=== PATIENT | female | born 1975 | race Caucasian/White ===

== ENCOUNTER → 2021-10-09 18:48 | Outpatient (BNVA) | payer BC, SELFPAY | PROVIDERS: PCP Nurse Practitioner Family; Visit Provider Registered Nurse Neonatal Intensive Care | DX: R50.9 Fever, unspecified (principal) | CPT/HCPCS: 87400 ==

== ENCOUNTER 2021-12-22 20:49 | Emergency (ER) | payer BC, MEDICAID, SELFPAY ==
[2021-12-22 20:51] VITALS: BP 112/83; PULSE 101; RESP 20; O2SAT 97; BMI 25.0
--- NOTE | 2021-12-22 20:56 | CTR_ITS ---
PROCEDURE INFORMATION: Exam: CT Chest With Contrast; Diagnostic Exam date and time: 12/22/2021 9:23 PM Age: 45 years old Clinical indication: Injury or trauma; Fall; Generalized; Blunt trauma (contusions or hematomas); Additional info: Fall 15 ft TECHNIQUE: Imaging protocol: Diagnostic computed tomography of the chest with contrast. Radiation optimization: All CT scans at this facility use at least one of these dose optimization techniques: automated exposure control; mA and/or kV adjustment per patient size (includes targeted exams where dose is matched to clinical indication); or iterative reconstruction. Contrast material: OMNI 350; Contrast volume: 83 ml; Contrast route: INTRAVENOUS (IV); COMPARISON: CT cervical spin wo con* [id number] 12/22/2021 9:20 PM RADIATION DOSE METRICS: Total DLP (mGy-cm): 1766.64 FINDINGS: Lungs: Unremarkable. No consolidation. No masses. Pleural spaces: Unremarkable. No pneumothorax. No pleural effusion. Heart: Unremarkable. No cardiomegaly. No pericardial effusion. Lymph nodes: Prominent mediastinal and hilar lymph nodes are most likely reactive. Calcified left hilar lymph nodes. Vasculature: Unremarkable. No aortic aneurysm. Bones/joints: Unremarkable. No acute fracture. Soft tissues: Unremarkable. PROCEDURE INFORMATION: Exam: CT Abdomen And Pelvis With Contrast Exam date and time: 12/22/2021 9:23 PM Age: 45 years old Clinical indication: Injury or trauma; Fall; Generalized; Blunt trauma (contusions or hematomas); Additional info: Fall 15 ft TECHNIQUE: Imaging protocol: Computed tomography of the abdomen and pelvis with contrast. Radiation optimization: All CT scans at this facility use at least one of these dose optimization techniques: automated exposure control; mA and/or kV adjustment per patient size (includes targeted exams where dose is matched to clinical indication); or iterative reconstruction. Contrast material: OMNI 350; Contrast volume: 83 ml; Contrast route: INTRAVENOUS (IV); COMPARISON: US ROR venous duplex LE RT 12/23/2019 10:38 AM RADIATION DOSE METRICS: Total DLP (mGy-cm): 1766.64 FINDINGS: Liver: Normal. No mass. Gallbladder and bile ducts: Normal. No calcified stones. No ductal dilation. Pancreas: Normal. No ductal dilation. Spleen: Calcified granulomas in the spleen. Adrenal glands: Normal. No mass. Kidneys and ureters: Mildly dysplastic right kidney. The left kidney is normal. No hydronephrosis. Stomach and bowel: Unremarkable. No obstruction. No mucosal thickening. Appendix: The appendix is visualized and is normal. Intraperitoneal space: Unremarkable. No free air. No significant fluid collection. Vasculature: Unremarkable. No abdominal aortic aneurysm. Lymph nodes: Unremarkable. No enlarged lymph nodes. Urinary bladder: Unremarkable as visualized. Reproductive: Mild physiologic enhancement in the right ovary. The uterus and left ovary are unremarkable. Bones/joints: Unremarkable. No acute fracture. Soft tissues: Subcutaneous fat contusion in the left hip region. CT/CT chest abd pel w con* IMPRESSION: 1. No fracture or acute finding. IMPRESSION: 1. No fracture or solid organ trauma identified. 2. Soft tissue contusion in the left hip region.
--- NOTE | 2021-12-22 20:56 | XRR_ITS ---
PROCEDURE INFORMATION: Exam: XR Left Forearm Exam date and time: 12/22/2021 9:36 PM Age: 45 years old Clinical indication: Injury or trauma; Fall; Blunt trauma (contusions or hematomas); Arm, lower; Left; Additional info: Fall arm pain TECHNIQUE: Imaging protocol: Radiologic exam of the Left forearm. Views: 2 views. COMPARISON: No relevant prior studies available. FINDINGS: Bones/joints: Normal. Soft tissues: Normal. XR/XR forearm LT 2V [id number] IMPRESSION: No acute findings.
--- NOTE | 2021-12-22 20:56 | XRR_ITS ---
PROCEDURE INFORMATION: Exam: XR Left Knee Exam date and time: 12/22/2021 9:32 PM Age: 45 years old Clinical indication: Injury or trauma; Fall; Blunt trauma; Knee; Left; Additional info: Fall knee pain TECHNIQUE: Imaging protocol: Radiologic exam of the Left knee. Views: 3 views. COMPARISON: No relevant prior studies available. FINDINGS: Bones/joints: The bones are intact and in normal alignment. The lateral view is malpositioned. Soft tissues: Normal. XR/XR knee LT 3V* [id number] IMPRESSION: No acute finding.
--- NOTE | 2021-12-22 20:56 | XRR_ITS ---
PROCEDURE INFORMATION: Exam: XR Left Hand Exam date and time: 12/22/2021 9:41 PM Age: 45 years old Clinical indication: Injury or trauma; Fall; Blunt trauma (contusions or hematomas); Hand; Left; Additional info: Fall finger FX TECHNIQUE: Imaging protocol: Radiologic exam of the Left hand. Views: 3 or more views. COMPARISON: CR (UP EXM, ) 12/22/2021 9:36 PM FINDINGS: Bones/joints: Posterior dislocation of the 4th proximal interphalangeal joint. No definite fracture visualized. The lateral view is suboptimal due to overlapping of all 4 fingers. The AP views are oblique. Soft tissues: Normal. XR/XR hand LT min 3V* [id number] IMPRESSION: Posterior dislocation of the 4th proximal interphalangeal joint.
--- NOTE | 2021-12-22 20:56 | CTR_ITS ---
PROCEDURE INFORMATION: Exam: CT Head Without Contrast Exam date and time: 12/22/2021 9:17 PM Age: 45 years old Clinical indication: Injury or trauma; Fall; Blunt trauma (contusions or hematomas); Additional info: Fall inury TECHNIQUE: Imaging protocol: Computed tomography of the head without contrast. Radiation optimization: All CT scans at this facility use at least one of these dose optimization techniques: automated exposure control; mA and/or kV adjustment per patient size (includes targeted exams where dose is matched to clinical indication); or iterative reconstruction. COMPARISON: No relevant prior studies available. RADIATION DOSE METRICS: Total DLP (mGy-cm): 807.63 FINDINGS: Limitations: Streak artifacts on the lower slices. Brain: No hemorrhage. Unremarkable white matter. No mass effect. Cerebral ventricles: No ventriculomegaly. Paranasal sinuses: Slight mucosal thickening in several sinuses. No air-fluid levels. Mastoid air cells: Unremarkable mastoids. Bones/joints: Left TMJ degeneration. No skull fracture. Soft tissues: No acute soft tissue finding. CT/CT head wo con* [id number] IMPRESSION: No acute findings.
--- NOTE | 2021-12-22 20:59 | CTR_ITS ---
PROCEDURE INFORMATION: Exam: CT Cervical Spine Without Contrast Exam date and time: 12/22/2021 9:20 PM Age: 45 years old Clinical indication: Injury or trauma; Fall; Blunt trauma; Additional info: Fall 15 ft TECHNIQUE: Imaging protocol: Computed tomography of the cervical spine without contrast. Radiation optimization: All CT scans at this facility use at least one of these dose optimization techniques: automated exposure control; mA and/or kV adjustment per patient size (includes targeted exams where dose is matched to clinical indication); or iterative reconstruction. COMPARISON: e+1 CT head wo con* [id number] 12/22/2021 9:17 PM RADIATION DOSE METRICS: Total DLP (mGy-cm): 614.92 FINDINGS: Bones/joints: No acute fracture or malalignment. Left TMJ degeneration. Discs/Spinal canal/Neural foramina: Minimal narrowing of the C6-C7 disc with slight annular bulging at this level and C3-C4. No significant canal or foraminal stenosis. Lungs: Two small ring densities in each upper lung, the largest located in the left upper lung measuring about 7 mm in diameter and having relatively thin but slightly irregular hopkins. Soft tissues: No acute finding. CT/CT cervical spin wo con* [id number] IMPRESSION: 1. No acute fracture. Minimal cervical degenerative disease detailed above. Left TMJ degeneration also present. 2. Subcentimeter ring densities in each upper lung raising the possibility of cavities.
--- NOTE | 2021-12-22 20:59 | ECG_ITS ---
[facility] Test Date: 2021-12-22 Pat Name: Janeth Limon Department: Room: Gender: Female Train Driver: : 1975 Requested By: Pankaj Leo Order Number: [id number] Elaine MD: Andreia Schultz M.D. Measurements Intervals [place] Rate: 99 P: 70 NV: 194 QRS: 99 QRSD: 121 T: 86 QT: 383 QTc: 491 Interpretive Statements SINUS RHYTHM LEFT ATRIAL ENLARGEMENT [-0.15mV P-WAVE IN V1/V2] BORDERLINE RIGHT AXIS DEVIATION [QRS AXIS > 90] ANTEROSEPTAL MYOCARDIAL INFARCTION , POSSIBLY ACUTE [40+ ms Q WAVE IN V1-V4] ACUTE CO No previous ECG available for comparison Electronically Signed On 12-24-2021 21:26:56 CDT by Andreia Schultz M.D. [email or web address]
--- NOTE | 2021-12-22 21:11 | ED_ITS ---
HPI - Fall General: Chief Complaint: Fall Stated Complaint: fall Time Seen by Provider: 12/22/21 20:56 Source: patient History of Present Illness: 45-year-old female who evidently sometime around 6 PM or before, fell between 15 and 20 feet off an embankment/[place]. She had a prolonged extrication time. She states that she never lost consciousness. She remembers the event. She denies head injury. She states mainly she has pain to the left hand and left forearm as well as her left knee. She has hip pain bilaterally as well. She has multiple abrasions. She presents awake, alert, and talking. She also states that a couple of teeth were knocked out. MD complaint: fall Onset (ago): hour(s) Fall from: from height (distance) Fall witnessed: yes, by bystander Place fall occurred: other Loss of consciousness: None Prolonged down time: yes Symptoms prior to fall: none Context: tripped/slipped Location of injury: face Location of injury - extremities: Left: forearm and knee Severity: moderate Associated symptoms-after fall: Denies abdominal pain, chest pain, confusion, headache(s), neck pain, short of breath or weakness Review of Systems Const: Denies: fever(s) Eyes: Denies: change in vision ENMT: Denies: throat pain Card: Denies: chest pain Resp: Denies: dyspnea GI: Reports: nausea; Denies: abdominal pain or vomiting : Denies: flank pain Musc: Reports: extremity pain; Denies: neck pain or back pain Skin/Breast: Reports: rash Neuro: Denies: headache(s) or confusion Physical Exam Const: GENERAL APPEARANCE: cooperative, in distress (Mild from pain) and ill appearing; not lethargic ORIENTATION/CONSCIOUSNESS: not lethargic HENMT: COMMON NORMALS: normocephalic and Normal external nose present HEAD & SCALP: normocephalic FACE & SINUS: normal facial exam and face symmetric; no abrasion and no edema NOSE: Normal external nose present and Normal nares present TEETH & GINGIVA: Yes abnormal tooth and associated gingiva (Appears right and left premolars are missing) THROAT: posterior oropharynx normal Eye: COMMON NORMALS: Equal, round and reactive pupils present and EOMs intact bilaterally PUPIL: Yes Equal, round and reactive pupils present Neck/C-Spine: GENERAL: Yes trachea midline CERVICAL SPINE: No Cervical spine tenderness Chest: COMMONS NORMALS: normal inspection of the chest Resp: COMMON NORMALS: normal respiratory effort, No use of accessory muscles and clear to auscultation bilaterally AUSCULTATION: clear to auscultation bilaterally Cardio: COMMON NORMALS: regular rhythm RATE: tachycardic RHYTHM: regular rhythm GI: COMMON NORMALS: Soft to palpation INSPECTION: No abdominal wall ecchymosis and No abdominal distension PALPATION: Yes Soft to palpation and No Tenderness to palpation present (GI) Back/Pelvis: COMMON NORMALS: thoracic and lumbar spine normal to inspection and no thoracic nor lumbar tenderness Extremity: NARRATIVE EXTREMITY EXAM: Left ring finger open deformity at the PIP. Tenderness along the left forearm. Puncture wound to the left anterior knee. Bleeding controlled. There is swelling to the knee as well. Neuro: SENSORIUM/ORIENTATION: No lethargic Procedures Laceration Laceration 1: Site: hand Side (If applicable): left Size (cm): 1.5 Description: irregular Depth: simple, single layer Local Anesthetic: lidocaine 1% Amount of anesthesia used (mL): 6 Pre-repair: wound explored, irrigated extensively and deep structures intact Skin layer closed with: nylon Size (cm): 4-0 Number of sutures: 3 Technique: simple, interrupted Laceration 2: Site: lower extremity Side (If applicable): left Size (cm): 1 Description: irregular Depth: simple, single layer Local Anesthetic: lidocaine 1% Amount of anesthesia used (mL): 2 Pre-repair: wound explored, irrigated extensively and deep structures intact Skin layer closed with: nylon Size (cm): 4-0 Number of sutures: 1 Technique: simple, interrupted Orthopedic Joint Reduction Joint #1: Time Out Performed: No Side: left Joint Reduction Location: finger Analgesia: nerve block Local Anesthesia: lidocaine 1% Amount of anesthesic used (mL): 6 Technique used: traction/counter-traction Post-reduction neuro exam: intact Post-reduction vascular: intact Post Reduction X-Ray Obtained: Yes Post Reduction X-Ray Results: reduced Splint Applied: Yes Patient Tolerated Procedure: well and no complications Course Vital Signs: Vital signs: Vital Signs Temperature 98.2 F 12/23/21 02:31 Pulse Rate 92 12/23/21 02:31 Respiratory Rate 18 12/23/21 02:31 Blood Pressure 121/81 12/23/21 02:31 Pulse Oximetry 98 12/23/21 02:31 MDM - Fall Medical Decision Making White blood cell count is 18.7. Labs are otherwise benign. Her vitals have been completely stable. CTs of the head, cervical spine, chest abdomen pelvis including thoracic and lumbar spine revealed no acute injury. X-ray of the hand reveals an open dislocation of the left fourth PIP. X-ray of the forearm is negative. After digital block, PIP dislocation is reduced followed by suturing of the open wound. Tendon is observed, and appears intact. It is splinted in alignment. Puncture wound over the knee is sutured as well. Knee x-ray reveals no free air in the joint. Puncture wound does not appear intra-articular. It was irrigated copiously with saline prior to closure. She will be placed on antibiotics for the open dislocation of her finger. Orthopedic follow-up. Lab Data : 12/22/21 21:00 12/22/21 21:00 Radiology Impressions Chest/Abdomen/Pelvis CT 12/22/21 20:56 IMPRESSION: 1. No fracture or acute finding. IMPRESSION: 1. No fracture or solid organ trauma identified. 2. Soft tissue contusion in the left hip region. Forearm X-Ray 12/22/21 20:56 IMPRESSION: No acute findings. Hand X-Ray 12/22/21 20:56 IMPRESSION: Posterior dislocation of the 4th proximal interphalangeal joint. Head CT 12/22/21 20:56 IMPRESSION: No acute findings. Knee X-Ray 12/22/21 20:56 IMPRESSION: No acute finding. Cervical Spine CT 12/22/21 20:59 IMPRESSION: 1. No acute fracture. Minimal cervical degenerative disease detailed above. Left TMJ degeneration also present. 2. Subcentimeter ring densities in each upper lung raising the possibility of cavities. Finger X-Ray 12/23/21 00:08 IMPRESSION: Residual radial and dorsal subluxation of the ring finger middle phalanx with respect to the head of the proximal phalanx with indeterminate alignment on the lateral view secondary to overlying artifact from other fingers. Laboratory Results WBC 18.7 10^3/uL (4.0-10.0) H 12/22/21 21:00 RBC 5.32 10^6/uL (4.1-5.3) H 12/22/21 21:00 Hgb 12.7 g/dL (11.5-15.3) 12/22/21 21:00 Hct 41.3 % (37.0-47.0) 12/22/21 21:00 MCV 77.6 fl (81-99) L 12/22/21 21:00 MCH 23.9 pg (28.0-34.0) L 12/22/21 21:00 MCHC 30.8 g/dL (30.0-36.0) 12/22/21 21:00 RDW 17.8 % (12.1-15.1) H 12/22/21 21:00 Plt Count 486 10^3/cmm (130-400) H 12/22/21 21:00 MPV 9.3 fL (7.4-10.4) 12/22/21 21:00 Neut % (Auto) 77.6 % 12/22/21 21:00 Lymph % (Auto) 15.7 % 12/22/21 21:00 Hughes % (Auto) 5.4 % 12/22/21 21:00 Eos % (Auto) 0.1 % 12/22/21 21:00 Baso % (Auto) 0.3 % 12/22/21 21:00 Neut # (Auto) 14.53 10^3/uL (1.8-7.7) H 12/22/21 21:00 Lymph # (Auto) 2.9 10^3/uL (0.8-4.8) 12/22/21 21:00 Hughes # (Auto) 1.0 10^3/uL (0.2-0.9) H 12/22/21 21:00 Eos # (Auto) 0.0 10^3/uL (0.0-0.8) 12/22/21 21:00 Baso # (Auto) 0.1 10^3/uL (0.0-0.1) 12/22/21 21:00 Nucleated RBC % (auto) 0 % 12/22/21 21:00 Nucleated RBCs # 0.0 /100WBC 12/22/21 21:00 Sodium 140 mmol/L (136-145) 12/22/21 21:00 Potassium 3.9 mmol/L (3.5-5.1) 06/18/22 21:00 Chloride 103 mmol/L (98-107) 12/22/21 21:00 Carbon Dioxide 23 mmol/L (22-29) 12/22/21 21:00 Anion Gap 17.9 (5-19) 12/22/21 21:00 BUN 10 mg/dL (6-20) 12/22/21 21:00 Creatinine 1.1 mg/dL (0.5-0.9) H 12/22/21 21:00 GFR Calculation 54.2 mL/min (90-130) L 12/22/21 21:00 Glucose 101 mg/dL (65-115) 12/22/21 21:00 Calculated Osmolality 289 mOsm/kg (285-295) 12/22/21 21:00 Calcium 9.0 mg/dL (8.5-10.5) 12/22/21 21:00 Total Bilirubin 0.2 mg/dL (0.15-1.2) 12/22/21 21:00 AST 19 U/L (0-32) 12/22/21 21:00 ALT 11 U/L (0-33) 12/22/21 21:00 Alkaline Phosphatase 125 IU/L (35-105) H 12/22/21 21:00 Creatine Kinase 89 U/L (26-192) 12/22/21 21:00 Total Protein 7.9 g/dL (6.6-8.7) 12/22/21 21:00 Albumin 4.6 g/dL (3.5-5.2) 12/22/21 21:00 Globulin 3.3 g/dL (1.3-4.6) 12/22/21 21:00 Ethyl Alcohol 116 mg/dL (0-10) H 12/22/21 21:00 Discharge Plan Discharge Patient Disposition: Home Clinical Impression: Dislocation of finger PIP joint, Laceration of knee, left, Contusion of hip, left, Contusion of hip, right Laceration of finger Qualifiers: Encounter type: initial encounter Finger: ring finger Damage to nail status: without damage Foreign body presence: without foreign body Laterality: left Qualified Code(s): S61.215A - Laceration without foreign body of left ring finger without damage to nail, initial encounter Condition: Stable Prescriptions: New doxycycline hyclate 100 mg capsule 100 mg PO BID 7 Days Qty: 14 0RF Percocet 7.5-325 mg tablet 1 tab PO Q6H PRN (Reason: pain) Qty: 10 0RF Discharge Orders: Discharge ED (Routine); Ordered 12/23/21 Ordered By: Pankaj Montaño Referrals: Jenny Melchor FNP [Primary Care Provider] - 4-7 days Maday Tinsley MD [Physician] - 4-7 days Patient Instructions: Contusion in Adults (ED), Finger Laceration (ED), Finger Dislocation (ED), Opioid Safety Activity Restrictions/Additional Instructions: Sutures out in 7 to 10 days. Keep clean and dry for 24 hours, then may wash with soap and running water. Do not submerge. Antibiotics as directed. Pain medication for severe pain. You may use ibuprofen as well. Case management order has been placed for orthopedics referral regarding your finger. Stay in splint until seen by them. Return for any concerning symptoms. Coding Level of Care Code ED Hydraulic Strainer Operator for Aiyana Fwannie Exam Comprehensive
[2021-12-22 21:17] LABS: Basophils # 0.1 10^3/uL (0.0-0.1); Basophils % 0.3 %; Eosinophils % 0.1 %; Hematocrit 41.3 % (37.0-47.0); Hemoglobin 12.7 g/dL (11.5-15.3); Lymphocytes # 2.9 10^3/uL (0.8-4.8); Lymphocytes % 15.7 %; Mean Corpuscular HGB Conc 30.8 g/dL (30.0-36.0); Mean Corpuscular Hemoglobin 23.9 pg (28.0-34.0); Mean Corpuscular Volume 77.6 fl (81-99); Mean Platelet Volume 9.3 fL (7.4-10.4); Monocytes % 5.4 %; Neutrophils # 14.53 10^3/uL (1.8-7.7); Neutrophils % 77.6 %; Nucleated Red Blood Cells % 0 %; Platelet Count 486 10^3/cmm (130-400); Red Blood Count 5.32 10^6/uL (4.1-5.3); Red Cell Distribution Width 17.8 % (12.1-15.1); White Blood Count 18.7 10^3/uL (4.0-10.0)
[2021-12-22 21:38] LABS: Alanine Aminotransferase 11 U/L (0-33); Albumin Level 4.6 g/dL (3.5-5.2); Alcohol Level 116 mg/dL (0-10); Alkaline Phosphatase 125 IU/L (35-105); Anion Gap 17.9 (5-19); Aspartate Amino Transferase 19 U/L (0-32); Blood Urea Nitrogen 10 mg/dL (6-20); Carbon Dioxide 23 mmol/L (22-29); Chloride 103 mmol/L (98-107); Creatine Phosphokinase 89 U/L (26-192); Globulin 3.3 g/dL (1.3-4.6); Glomerular Filtration Rate 54.2 mL/min (90-130); Glucose 101 mg/dL (65-115); Osmolality Calculated 289 mOsm/kg (285-295); Potassium 3.9 mmol/L (3.5-5.1); Sodium 140 mmol/L (136-145); Total Bilirubin 0.2 mg/dL (0.15-1.2); Total Protein 7.9 g/dL (6.6-8.7)
[2021-12-22] MEDS: iohexol 350 mg/mL 100 mL Btl IV (21:42)
[2021-12-22] MEDS: morphine 4 mg/mL SDV 1 mL IVP (21:52)
[2021-12-22] MEDS: ondansetron 2 mg/ML SDV 2 mL 4 MG IVP (21:52)
[2021-12-22] MEDS: sodium chloride 0.9% 1,000 ML 999 ML IV (21:52)
--- NOTE | 2021-12-23 00:08 | XRR_ITS ---
PROCEDURE INFORMATION: Exam: XR Left Finger(s) Exam date and time: 12/23/2021 12:26 AM Age: 45 years old Clinical indication: Abnormal findings; Abnormal imaging study of the limbs; Hand; Additional info: Dislocation, reduction TECHNIQUE: Imaging protocol: Radiologic exam of the Left fingers. Views: Minimum 2 views. COMPARISON: CR ([facility], ) 12/22/2021 9:41 PM FINDINGS: Bones/joints: Residual radial and dorsal subluxation of the ring finger middle phalanx with respect to the head of the proximal phalanx with indeterminate alignment on the lateral view secondary to overlying artifact from other fingers. Soft tissues: Normal. XR/XR finger LT min 2V [id number] IMPRESSION: Residual radial and dorsal subluxation of the ring finger middle phalanx with respect to the head of the proximal phalanx with indeterminate alignment on the lateral view secondary to overlying artifact from other fingers.
[2021-12-23 00:45] VITALS: RESP 18
[2021-12-23] MEDS: fentaNYL 50 mcg/mL INJ 2mL 75 MCG IVP (00:45)
[2021-12-23] MEDS: ceFAZolin 1,000 MG in sodium chloride 0.9% (plus) 50 ML 100 MG IV (00:45)
[2021-12-23 02:31] VITALS: BP 121/81; PULSE 92; RESP 18; TEMP 36.8; O2SAT 98
--- NOTE | 2021-12-23 07:02 | DCPLANNER ---
Addendum entered by Theresa Guillory 01/27/22 15:11: Patient had a follow up appointment scheduled for 12.27.21 with Valentín Velez at ortho - patient did attend appointment. Original Note: manager architecture had message to schedule a follow up appointment for patient with ortho. manager architecture sent patients information to the front office staff at ortho. Patients information will be printed and reviewed. Clinic will call patient with appointment information.
== END 2021-12-23 02:37 | disposition home or self-care (01) ==
PROVIDERS: Emergency Provider Emergency Medicine; PCP Nurse Practitioner Family
DX: S63.281A Dislocation of proximal interphalangeal joint of left index finger, initial encounter (principal); S81.012A Laceration without foreign body, left knee, initial encounter; S70.02XA Contusion of left hip, initial encounter; S70.01XA Contusion of right hip, initial encounter; W17.81XA Fall down embankment (hill), initial encounter
CPT/HCPCS: 12001; 26770; 70450; 71260; 72125; 73090; 73130; 73140; 73562; 74177; 80053; 80307; 82550; 85025; 93005; 96365; 96375; 99285; J0690; J2270; J2405; J3010; J7030; Q9967

== ENCOUNTER → 2021-12-27 14:55 | Outpatient (BNVA) | payer BC, MEDICAID, SELFPAY | PROVIDERS: PCP Nurse Practitioner Family; Referring Provider Emergency Medicine; Visit Provider Nurse Practitioner Family | DX: S61.215A Laceration without foreign body of left ring finger without damage to nail, initial encounter (principal); S63.289A Dislocation of proximal interphalangeal joint of unspecified finger, initial encounter; W17.89XA Other fall from one level to another, initial encounter | CPT/HCPCS: 99214 ==

== ENCOUNTER 2021-12-29 18:00 | Emergency (ER) | payer BC, MEDICAID, SELFPAY ==
[2021-12-29 18:53] VITALS: BP 127/84; PULSE 79; RESP 16; TEMP 36.5; O2SAT 95; BMI 25.0
--- NOTE | 2021-12-29 18:54 | XRR_ITS ---
PROCEDURE INFORMATION: Exam: XR Left Hand Exam date and time: 12/29/2021 9:18 PM Age: 46 years old Clinical indication: Pain; Hand; Left; Additional info: Hand pain TECHNIQUE: Imaging protocol: Radiologic exam of the Left hand. Views: 3 or more views. COMPARISON: CR (UP EX, ) 12/22/2021 9:41 PM FINDINGS: Bones/joints: Dislocation of the 4th digit at the PIP joint space. No evidence of fracture. Soft tissues: Normal. XR/XR hand LT min 3V* [id number] IMPRESSION: Dislocation at the 4th PIP joint space.
--- NOTE | 2021-12-29 21:40 | W.ED.EXTPRO ---
Documented by User: NICOLA Shah 12/30/21 17:08 HPI - Extremity Problem General: Chief complaint: Extremity Injury, Upper Stated complaint: Left finger pain Time Seen by Provider: 12/29/21 21:04 History of Present Illness: Patient is a 46-year-old female comes to the ED with left ring finger dislocation. Patient was seen here in the ED back on December 22 after having a fall and she had a dislocated left ring finger that was reduced before she was discharged. She is scheduled to see a hand specialist in [place], but the finger dislocated again without any injury or trauma. The finger read dislocated and has been out for approximately 4 to 5 days. Hand Specialist told her to come here to the ED to have finger reduced before she goes to her appointment this coming week. Associated symptoms: Deny chest pain, fever(s) or rash Review of Systems Const: Denies: fever(s), chills or fatigue Eyes: Denies: change in vision or eye discomfort ENMT: Denies: throat pain, odynophagia, nasal discharge or nasal congestion Card: Denies: chest pain, palpitations, edema, swelling of feet/ankles, dyspnea on exertion or orthopnea Resp: Denies: dyspnea, productive cough or non-productive cough GI: Denies: abdominal pain, nausea, vomiting, diarrhea, constipation or hematochezia : Denies: flank pain, dysuria or hematuria Musc: Reports: extremity pain (Left hand fourth digit PIP joint ), extremity swelling (Left hand fourth digit) and deformity (Visible deformity/dislocation of PIP joint on left hand fourth digit.); Denies: neck pain or back pain Skin/Breast: Denies: rash or new lesions Neuro: Denies: headache(s), numbness in extremities or weakness in extremities [facility] ED PFSH: Medical History (Updated 12/30/21 @ 17:08 by NICOLA Shah) No pertinent family history Surgical History (Updated 12/30/21 @ 17:08 by NICOLA Shah) No pertinent past surgical history Physical Exam Const: COMMON NORMALS: no acute distress, patient oriented x3 and alert GENERAL APPEARANCE: cooperative HENMT: COMMON NORMALS: normocephalic HEAD & SCALP: normocephalic MOUTH: Normal oral and palatal mucosa present THROAT: posterior oropharynx normal and uvula midline Neck/C-Spine: COMMON NORMALS: supple GENERAL: Yes normal visual inspection Resp: COMMON NORMALS: normal respiratory effort, No retractions, No use of accessory muscles and clear to auscultation bilaterally AUSCULTATION: clear to auscultation bilaterally Cardio: COMMON NORMALS: regular rate, regular rhythm, S1 normal heart sound present, S2 normal heart sound present, No gallops present (Cardio), No clicks present (Cardio), No murmurs present (Cardio) and Peripheral pulses 2+ throughout RATE: regular rate RHYTHM: regular rhythm HEART SOUNDS: S1 normal heart sound present and S2 normal heart sound present PERIPHERAL PULSES: Peripheral pulses 2+ throughout GI: COMMON NORMALS: Normal to inspection, nondistended, normoactive bowel sounds present, Soft to palpation, non-tender and no masses PALPATION: Yes Soft to palpation : COMMON NORMALS: Yes no CVA tenderness BLADDER/KIDNEY EXAM: Yes no CVA tenderness Back/Pelvis: COMMON NORMALS: no CVA tenderness Extremity: COMMON NORMALS: normal to inspection NARRATIVE EXTREMITY EXAM: Patient has visible dislocation of PIP joint of left hand fourth digit. Tenderness of finger and swelling noted as well. Neuro: COMMON NORMALS: patient oriented x3 and moves all extremities SENSORIUM/ORIENTATION: Yes alert Skin: GENERAL SKIN EXAM: dry skin Procedures Nerve Block Nerve Block 1: Time out performed: Yes Local Anesthetic: lidocaine 2% Amount of anesthesia used (mL): 5 Side: left Nerve Blocks: digital (Fourth digit) Procedure Successful: Yes Patient Tolerated Procedure: well Complications: none Orthopedic Joint Reduction Joint #1: Time Out Performed: Yes Side: left Joint Reduction Location: finger (PIP joint fourth digit) Analgesia: nerve block (Digital nerve block) Amount of anesthesic used (mL): 5 Technique used: traction/counter-traction Post-reduction neuro exam: intact Post-reduction vascular: intact Post Reduction X-Ray Obtained: Yes Course Vital Signs: Vital signs: Vital Signs Temperature 98.2 F 12/30/21 02:15 Pulse Rate 80 12/30/21 02:15 Respiratory Rate 18 12/30/21 02:40 Blood Pressure 124/86 12/30/21 02:15 Pulse Oximetry 95 12/29/21 18:53 MDM - Extremity (Nontraumatic) Lab Data Radiology Impressions Hand X-Ray 12/29/21 23:01 IMPRESSION: Post reduction views as discussed above. Finger X-Ray 12/30/21 02:28 IMPRESSION: Post reduction views as above. Discharge Plan Discharge Patient Disposition: Home Clinical Impression: Dislocation of finger PIP joint Qualifiers: Encounter type: subsequent encounter Qualified Code(s): S63.289D - Dislocation of proximal interphalangeal joint of unspecified finger, subsequent encounter Condition: Stable Prescriptions: New Percocet 7.5-325 mg tablet 1 tab PO Q6H PRN (Reason: pain) Qty: 10 0RF No Action hydrocodone-acetaminophen 5-325 mg tablet 1 tab PO Q6H PRN (Reason: pain) 5 Days Qty: 25 0RF doxycycline hyclate 100 mg capsule 100 mg PO BID 7 Days Qty: 14 0RF Discharge Orders: Discharge ED (Routine); Ordered 12/30/21 Ordered By: Pankaj Montaño Referrals: Jenny Melchor FNP [Primary Care Provider] - Patient Instructions: Closed Reduction (ED), Finger Dislocation (ED), Opioid Safety Activity Restrictions/Additional Instructions: Stay in splint until seen by specialist. Ice frequently for pain and swelling, particularly for the first 48 hours. Pain medication as needed. Coding Level of Care Code ED Oil Well Driller for [facility]g Fwd Exam Comprehensive Documented by User: Pankaj Montaño, 12/30/21 15:37 HPI - Extremity Problem General: Chief complaint: Extremity Injury, Upper Stated complaint: Left finger pain Time Seen by Provider: 12/29/21 21:04 [facility] ED PFSH: Medical History (Updated 12/30/21 @ 17:08 by NICOLA Shah) No pertinent family history Surgical History (Updated 12/30/21 @ 17:08 by NICOLA Shah) No pertinent past surgical history Procedures Orthopedic Joint Reduction Joint #1: Analgesia: procedural sedation Post Reduction X-Ray Results: reduced Splint Applied: Yes Patient Tolerated Procedure: well and no complications Additional Comments: Reduction first attempted by the physician assistant manager bilingual. By the time post reduction X rays were taken, the patient had dislocated again. She was placed under procedural sedation, and reduction was performed by me with splint application. Joint remains intact on post reduction X ray. She's experiencing some pain. She evidently sees a hand surgeon this week. She will stay in her splint this time until seen by her hand surgeon. Evidently, she had taken her splint off after the first reduction a couple of days ago, and this finger has been out for awhile. Importance of staying in splint post reduction was again stressed to her. Procedural Sedation Indication: fracture/dislocation reduction ASA Class: I Preparation: groundwater monitoring technician applied, pulse oximeter, supplemental O2 applied, suction/airway equipment at bedside and IV secured Midazolam: IV Midazolam dose (mg): 2 IV Etomidate dose (mg): 10 Patient Tolerated Procedure: well and no complications Complications: none Course Vital Signs: Vital signs: Vital Signs Temperature 98.2 F 12/30/21 02:15 Pulse Rate 80 12/30/21 02:15 Respiratory Rate 18 12/30/21 02:40 Blood Pressure 124/86 12/30/21 02:15 Pulse Oximetry 95 12/29/21 18:53 MDM - Extremity (Nontraumatic) Medical Decision Making See above. Lab Data Radiology Impressions Hand X-Ray 12/29/21 23:01 IMPRESSION: Post reduction views as discussed above. Finger X-Ray 12/30/21 02:28 IMPRESSION: Post reduction views as above. Discharge Plan Discharge Patient Disposition: Home Clinical Impression: Dislocation of finger PIP joint Qualifiers: Encounter type: subsequent encounter Qualified Code(s): S63.289D - Dislocation of proximal interphalangeal joint of unspecified finger, subsequent encounter Condition: Stable Prescriptions: New Percocet 7.5-325 mg tablet 1 tab PO Q6H PRN (Reason: pain) Qty: 10 0RF No Action hydrocodone-acetaminophen 5-325 mg tablet 1 tab PO Q6H PRN (Reason: pain) 5 Days Qty: 25 0RF doxycycline hyclate 100 mg capsule 100 mg PO BID 7 Days Qty: 14 0RF Discharge Orders: Discharge ED (Routine); Ordered 12/30/21 Ordered By: Pankaj Montaño Referrals: Jenny Melchor FNP [Primary Care Provider] - Patient Instructions: Closed Reduction (ED), Finger Dislocation (ED), Opioid Safety Activity Restrictions/Additional Instructions: Stay in splint until seen by specialist. Ice frequently for pain and swelling, particularly for the first 48 hours. Pain medication as needed. Coding Level of Care Code ED Oil Well Driller for [place] Fwd Exam Comprehensive
--- NOTE | 2021-12-29 23:01 | XRR_ITS ---
PROCEDURE INFORMATION: Exam: XR Left Hand Exam date and time: 12/29/2021 11:23 PM Age: 46 years old Clinical indication: Pain; Finger(s); Left; Additional info: Post reduction imaging TECHNIQUE: Imaging protocol: Radiologic exam of the Left hand. Views: 3 or more views. COMPARISON: CR (UP EX, ) 12/29/2021 9:18 PM FINDINGS: Bones/joints: Post reduction views still demonstrate a dislocation of the PIP joint joint of the left 4th digit/ring finger. The middle phalanx is displaced dorsally relative to the proximal phalanx. The appearance is similar to the prior exam. There is no definite/visible acute fracture. If symptoms persist, follow-up imaging in several days may be useful to exclude an occult fracture. Soft tissues: Diffuse soft tissue swelling involving the left 4th finger. XR/XR hand LT min 3V* [id number] IMPRESSION: Post reduction views as discussed above.
[2021-12-29] MEDS: lidocaine 2% INJ 20 mL 6 ML INJECTION (23:02)
[2021-12-29 23:42] VITALS: RESP 18
[2021-12-29] MEDS: morphine 4 mg/mL SDV 1 mL IM (23:42)
[2021-12-30 00:50] VITALS: RESP 18
[2021-12-30] MEDS: HYDROmorphone 1 mg/mL INJ 1 mL IM (00:50)
[2021-12-30 02:15] VITALS: BP 124/86; PULSE 80; RESP 18; TEMP 36.8; O2SAT 98
[2021-12-30] MEDS: ondansetron 2 mg/ML SDV 2 mL 4 MG IVP (02:15)
[2021-12-30] MEDS: midazolam 1 mg/mL INJ 2 mL 2 MG IVP (02:17)
--- NOTE | 2021-12-30 02:28 | XRR_ITS ---
PROCEDURE INFORMATION: Exam: XR Left Finger(s) Exam date and time: 12/30/2021 2:23 AM Age: 46 years old Clinical indication: Injury or trauma; Fall; Left; Ring finger; Patient HX: Check S/P reduction of pip dislocation of 4th digit. ; Additional info: Dislocation reduction TECHNIQUE: Imaging protocol: Radiologic exam of the Left fingers. Views: Minimum 2 views. COMPARISON: CR (UP EX, ) 12/23/2021 12:26 AM FINDINGS: Bones/joints: A single lateral lateral post reduction view of the left 4th digit/ring finger is provided. On this single view, there appears to be interval reduction of the previously seen dislocation of the PIP joint. 2.4 x 1.2 mm ossific density along the volar aspect of the PIP joint could represent an associated acute avulsion/chip fracture, versus a chronic finding. Please correlate clinically. Soft tissues: Overlying splint is present. XR/XR finger LT min 2V [id number] IMPRESSION: Post reduction views as above.
[2021-12-30 02:40] VITALS: RESP 18
[2021-12-30] MEDS: HYDROmorphone 1 mg/mL INJ 1 mL IVP (02:40)
--- NOTE | 2021-12-30 03:47 | PC.NURSE ---
Patient sent how with 2x Oxycodone/Acetaminophen 5-325 per MD order.
== END 2021-12-30 03:38 | disposition home or self-care (01) ==
PROVIDERS: Emergency Provider Emergency Medicine; PCP Nurse Practitioner Family
DX: S63.285A Dislocation of proximal interphalangeal joint of left ring finger, initial encounter (principal); W19.XXXA Unspecified fall, initial encounter
CPT/HCPCS: 26770; 73130; 73140; 96372; 96374; 96375; 99284; J1170; J2250; J2270; J2405; J3490